=== PATIENT | male | born 1950 | race African-American/Black ===

== ENCOUNTER → 2019-11-09 10:18 | Outpatient (CLI) | payer BC, SELFPAY ==
--- NOTE | ~2019-11-09 | US_ITS ---
EXAMINATION: US thyroid DATE: 11/09/2019 10:38 INDICATION: Nontoxic multinodular goiter TECHNIQUE: Multiple ultrasound images of the thyroid were obtained. COMPARISON: None. FINDINGS: The right thyroid lobe measures 8.9 x 3.9 x 3.6 cm. The left thyroid lobe measures 6.1 x 2.3 x 2.4 c m. Again seen are multiple bilateral thyroid nodules. No significant interval change in a couple het erogeneously isoechoic solid masses with smooth margins in the right thyroid which currently measures 4.1 cm and 3.1 cm in maximal dimensions. The former is taller than wide (TI-RADS 4, moderately suspi cious , FNA if >=1.5 cm, annual followup is >1 cm) the latter 3.1 cm mass is wider than tall, (TI-RAD S 3, mildly suspicious , FNA if >=2.5 cm, annual followup is >1.5 cm). There are a few additional sma ller predominantly solid nodules in the right thyroid lobe which are centrally isoechoic, peripherall y hypoechoic, wider than tall and with smooth margins, TI-RADS 4, and which measure 10 mm, 9 mm and 6 mm in maximal dimensions. These appear to have been present at the time of the prior study but were not individually measured. In the left thyroid lobe there are a couple solid heterogeneous isoechoic nodules measuring 2.3 x 1.8 x 1.8 cm and 2.0 x 1.4 x 1.7 cm, the former wider than tall (TI-RADS 3) a nd the latter taller than wide (TI-RADS 4). On the prior study these were measured as a single larger nodule and overall there has been no significant interval change since the prior study. There is an additional 10 mm solid isoechoic TI RADS 3 nodule in the left thyroid which was not imaged on the nusrat or study. IMPRESSION: 1. Multinodular goiter with no significant interval change in size since 05/19/2018 of the 4 largest m asses which measure 4.1 cm and 3.1 cm on the right and 2.3 cm and 2.0 cm on the left. The larger nodu les were biopsied on 02/03/2015 with pathology for each read at that time as consistent with benign follicular nodule . Reviewed, dictated and finalized at location A. IMPRESSION: 1. Multinodular goiter with no significant interval change in size since 019 of the 4 largest masses which measure 4.1 cm and 3.1 cm on the right and 2. 3 cm and 2.0 cm on the left. The larger nodules were biopsied on 02/03/2015 wit h pathology for each read at that time as consistent with benign follicular no dule .
== END ==
PROVIDERS: PCP Nurse Practitioner; Visit Provider Nurse Practitioner
DX: E04.2 Nontoxic multinodular goiter (principal)
CPT/HCPCS: 76536

== ENCOUNTER → 2020-05-30 14:28 | Outpatient (CLI) | payer BC, SELFPAY ==
--- NOTE | ~2020-05-30 | XR_ITS ---
EXAMINATION: XR shoulder RT min 2V DATE: 05/30/2020 14:44 INDICATION: Right shoulder pain. TECHNIQUE: 4 views of right shoulder were obtained. COMPARISON: Chest 2 views 05/03/2011 FINDINGS: Bone alignment is normal. No fracture. There is mild osteoarthritis of glenohumeral joint a nd acromioclavicular joint characterized by tiny marginal osteophytes. There is a chronic right parat agatha mass with leftward displacement of the trachea, likely a goiter. IMPRESSION: 1. Mild polyarticular osteoarthritis. Reviewed, dictated and finalized at location A. TURNER
== END ==
PROVIDERS: PCP Internal Medicine; Visit Provider Internal Medicine
DX: M19.011 Primary osteoarthritis, right shoulder (principal)
CPT/HCPCS: 73030

== ENCOUNTER 2020-06-14 09:32 | Outpatient (CLI) | payer BC, SELFPAY ==
--- NOTE | 2020-06-19 16:04 | WPDHOLTEREM ---
Holter/Event Monitor Holter/Event Monitor Date of procedure: 06/14/20 Procedure Type: 24 hour holter monitor Indications: Tachycardia Conclusion: 1. 24 hour holter monitor on 06/14/20. 2. Underlying rhythm is sinus rhythm. HR range 56-135 bpm; average HR 84 bpm. 3. There are 415 premature supraventricular complexes and 3 supraventricular couplets. No supraventricular tachycardria. 4. There are 277 premature ventricular complexes. No ventricular tachycardia. 5. No sinoatrial or atrioventricular blocks. No significant pauses greater than 2 seconds. 6. No symptoms available for correlation.
== END 2020-06-14 09:33 | disposition home or self-care (01) ==
PROVIDERS: PCP Internal Medicine; Visit Provider Internal Medicine
DX: R00.0 Tachycardia, unspecified (principal)
CPT/HCPCS: 93225; 93226

== ENCOUNTER → 2021-09-21 11:09 | Outpatient (CLI) | payer BC, SELFPAY ==
--- NOTE | ~2021-09-21 | US_ITS ---
US scrotum doppler DATE: 09/21/2021 11:40 INDICATION: Left scrotal pain, swelling TECHNIQUE: Real-time and color flow imaging and Doppler analysis COMPARISON: None FINDINGS: Right testicle measures 3.6 x 2.5 x 3.1 cm. Left testicle measures 3.7 x 2.4 x 3 cm. There is a large irregular area of hypoechogenicity within the left testicle measures 3.2 x 1.9 x 2.8 cm, with very prominent, flow signal. Differential diagnosis includes primary testicular malignancy or lymphoma versus less likely orchitis. Urological consultation is recommended. Mild to moderate bilateral hydroceles. Left varicocele with diameter of up to 3 mm. IMPRESSION: Irregular hypoechoic heterogeneous mass with prominent vascularity involving the left yolis ticle, suspicious for primary testicular malignancy or lymphoma; differential diagnosis includes orch itis Urological consultation is recommended Reviewed, dictated and finalized at Location A. Reviewed, dictated and finalized at location A. IMPRESSION: Irregular hypoechoic heterogeneous mass with prominent vascularity involving the left testicle, suspicious for primary testicular malignancy or ly mphoma; differential diagnosis includes orchitis Urological consultation is recommended
== END ==
PROVIDERS: PCP Internal Medicine; Visit Provider Nurse Practitioner Adult Health
DX: N45.1 Epididymitis (principal); N50.89 Other specified disorders of the male genital organs
CPT/HCPCS: 76870; 93976

== ENCOUNTER → 2021-10-19 10:49 | Outpatient (CLI) | payer BC, SELFPAY ==
--- NOTE | ~2021-10-19 | US_ITS ---
US scrotum doppler INDICATION: Bilateral epididymitis TECHNIQUE: Testicular sonogram utilizing grayscale and color Doppler FINDINGS: There is an irregular shaped hypoechoic mass of the left testicle measuring 3.1 x 2 x 2.5 c m with internal vascularity. Right testicular echotexture is normal. The right testes measures 4.3 x 2.4 x 3.3 cm centimeters, and the left testis measures 3.9x 2.4 x 3 cm cm. There is normal vascular f low to both testes. The right and left epididymides appear normal. There is a small right hydrocele. IMPRESSION: 1. Poorly defined hypoechoic mass of the left testicle measuring 3.1 x 2 x 2.5 cm with internal vasc ularity. Considerations include primary testicular malignancy, lymphoma, and infection. Findings not significantly changed from prior examination allowing for differences in technique. 2: Small right hydrocele. Reviewed, dictated and finalized at location A. IMPRESSION: 1. Poorly defined hypoechoic mass of the left testicle measuring 3.1 x 2 x 2.5 cm with internal vascularity. Considerations include primary testicular malign john, lymphoma, and infection. Findings not significantly changed from prior ex amination allowing for differences in technique. 2: Small right hydrocele.
== END ==
PROVIDERS: PCP Internal Medicine; Visit Provider Urology
DX: N45.1 Epididymitis (principal); N43.3 Hydrocele, unspecified
CPT/HCPCS: 76870; 93976

== ENCOUNTER 2022-08-21 15:52 | Emergency (ER) | payer BC, SELFPAY ==
--- NOTE | 2022-08-21 16:00 | ED.SKABFB ---
HPI - Skin/Abscess/Foreign Bdy General Chief complaint: Skin/Abscess/Foreign Body Stated complaint: Both Under Arms Rash Time Seen by Provider: 08/21/22 15:59 Source: patient Mode of arrival: ambulatory Limitations: no limitations History of Present Illness HPI narrative: Nahum is a 9-year-old male patient presenting to the clinic today with complaints of a rash under her bilateral arms. He reports that the rash is painful. He said it started approximately 1 week ago when he change soaps. States that he has scrubbed the area is and they feel raw and painful. Has noticed some pus coming from the wound and has an open sore on the right axilla Related Data Home Medications Medication Instructions Recorded Confirmed tadalafil 20 mg tablet (Cialis) 20 mg PO DAILY PRN Erectile 11/05/19 08/21/22 Dysfunction cholecalciferol (vitamin D3) 125 125 mcg PO DAILY 04/25/21 08/21/22 mcg (5,000 unit) capsule Allergies Allergy/AdvReac Type Severity Reaction Status Date / Time nifedipine Allergy Intermediate Swelling Verified 08/21/22 15:58 lisinopril Allergy Mild Swelling Verified 08/21/22 15:58 Review of Systems Review of Systems: Pertinent positives per HPI. Patient denies any fever, chills, headache, visual changes, dizziness, cough, runny nose, sore throat, shortness of breath, chest pain, palpitations, nausea, vomiting, diarrhea, constipation, abdominal pain, or any urinary issues. [facility] Past Medical History Medical History Screening for colon cancer Family History Family History Father Family history of diabetes mellitus in first degree relative Family history of heart disease in male family member before age 55 Diabetes mellitus Family history of cardiovascular disease Mother Patient's mother is Father Diabetes mellitus Hypertension Family history of cardiovascular disease Mother Diabetes mellitus Hypertension Family history of cardiovascular disease Social History Social History Smoking status: Former smoker Tobacco type: cigarettes Smoking end date: 04/07/77 Alcohol intake: current Drinks per week: 4 Alcohol use details: beers Substance use: never Substance use type: does not use Lack of Transportation: No Lack of Food: Never True Current Housing: I Have Housing Concerned About Future Housing: No Difficulty Paying Gas/Electric Bills: No Difficulty Paying for Meds: No Currently Unemployed: No Education: High School Diploma/GED Difficulty w/ Childcare or Family Care: No Comments At the time of my signature, I reviewed and agree with the nursing past medical, surgical, social, and family history. There is no relevant family history pertinent to the patient complaint. Exam Narrative: General: Well-developed, well nourished, in no apparent distress Head: Normocephalic, atraumatic. Cardio: Regular rate and rhythm, s1 and s2 normal, no murmur appreciated. Resp: Clear to auscultation bilaterally, no rhonchi, rales, wheezing or rubs. Integumentary: Rendon, warm, and dry, 6 red, raised canals that are inflamed, tender to touch, with white purulent discharge expressed with palpation after incision and drainage. Largest measuring 3x2cm Course Course Emergency Course: Portions of this record may have been created with voice recognition software. Level of Care: Express Care Visit Vital Signs Vital signs: Vital signs reviewed Procedures Abscess I/D Bilateral axilla: Date of Incision: 08/21/22 Local Anesthetic: lidocaine 1% Amount of anesthesia used (mL): 2 Technique: incised with #11 blade Amount of fluid expressed (mL): 2 Irrigation: No Packing used?: none I&D Results: Pus and Blood Compl
[2022-08-21 16:08] VITALS: BP 132/82; PULSE 87; RESP 16; TEMP 37.3; O2SAT 98
== END 2022-08-21 16:50 | disposition home or self-care (01) ==
PROVIDERS: Emergency Provider Nurse Practitioner Family; PCP Internal Medicine
DX: L73.2 Hidradenitis suppurativa (principal); Z87.891 Personal history of nicotine dependence; E78.00 Pure hypercholesterolemia, unspecified; I12.9 Hypertensive chronic kidney disease with stage 1 through stage 4 chronic kidney disease, or unspecified chronic kidney disease; N18.2 Chronic kidney disease, stage 2 (mild); M19.90 Unspecified osteoarthritis, unspecified site; Z85.46 Personal history of malignant neoplasm of prostate; E55.9 Vitamin D deficiency, unspecified
CPT/HCPCS: 10061; 99213; G0463

== ENCOUNTER → 2022-12-19 15:28 | Outpatient (CLI) | payer BC, SELFPAY ==
--- NOTE | ~2022-12-19 | XR_ITS ---
XR hip RT min 2V 12/19/2022 15:46 Indication: Right hip pain Procedure: 2 views right hip Comparison: No prior studies for comparison. Findings: Moderate osteoarthritis of the right hip. No fracture or traumatic malalignment. There are radiation therapy implant seeds in the prostate bed. Impression: 1: Moderate osteoarthritis of the right hip. Reviewed, dictated and finalized at location L. Impression: 1: Moderate osteoarthritis of the right hip.
== END ==
PROVIDERS: PCP Nurse Practitioner Family; Visit Provider Nurse Practitioner Family
DX: M16.11 Unilateral primary osteoarthritis, right hip (principal)
CPT/HCPCS: 73502

== ENCOUNTER 2025-02-02 10:03 | Emergency (ER) | payer BC, SELFPAY ==
[2025-02-02 10:10] VITALS: BP 145/88; PULSE 93; RESP 18; TEMP 36.9; O2SAT 99
--- NOTE | 2025-02-02 10:35 | ED_ITS ---
HPI - URI/Sore Throat General Chief Complaint: Upper Respiratory Infection Stated Complaint: cough/runny nose Time Seen by Provider: 02/02/25 10:16 Source: patient and RN notes reviewed Mode of arrival: ambulatory Limitations: no limitations History of Present Illness HPI Narrative: Patient presents today complaining of a 2 week history of nasal congestion and sinus pressure, post nasal drip, body aches, headache, productive cough. Denies fever, sore throat, shortness of breath. He has tried mucinex, coricidin HBP without much relief. He has used his albuterol inhaler a few times as well. History of asthma. Related Data Home Medications ?Medication ?Instructions ?Recorded ?Confirmed ?Last Taken ?Type tadalafil 20 mg tablet (Cialis) 20 mg PO DAILY PRN Ere ctile 11/05/19 09/30/24 Unknown History Dysfunction cholecalciferol (vitamin D3) 125 125 mcg PO DAILY 04/0709/30/24 Unknown History mcg (5,000 unit) capsule Allergies Allergy/AdvReac Type Severity Reaction Status Date / Time nifedipine Allergy Intermediate Swelling Verified 02/02/25 10:06 lisinopril Allergy Mild Swelling Verified 02/02/25 10:06 PMF Past Medical History Medical History BMI 28.0-28.9,adult Leg fracture, right Degenerative joint disease of right hip Screening for colon cancer Surgical History Surgical History Hx of colonoscopy Family History Family History Father Family history of diabetes mellitus in first degree relative Family history of heart disease in male family member before age 55 Diabetes mellitus Family history of cardiovascular disease Mother Patient's mother is Father Diabetes mellitus Hypertension Family history of cardiovascular disease Mother Diabetes mellitus Hypertension Family history of cardiovascular disease Social History Social History Smoking status: Former smoker Tobacco type: cigarettes Second hand tobacco smoke exposure: Yes Smoking end date: 04/07/77 Alcohol intake: current Drinks per week: 4 Alcohol use details: beers Substance use: never Substance use type: does not use Do You Feel Safe in your Home?: Yes Lack of Transportation: No Lack of Food: Never True Current Housing: I Have Housing Concerned About Future Housing: No Difficulty Paying Gas/Electric Bills: No Difficulty Paying for Meds: No Currently Unemployed: No Education: High School Diploma/GED Difficulty w/ Childcare or Family Care: No Living arrangements: alone Occupation/Education: retired 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 Please see nursing chart for further information. There is no relevant family history pertinent to the presenting complaint Exam Narrative: GENERAL: Mildly ill-appearing, well-nourished, and in no acute distress. HEAD: Normocephalic, atraumatic. EYES: EOMI. No redness or drainage. Conjunctivae normal. ENT: Mucous membranes pink and moist. Nares congested with rhinorrhea. + sinus tenderness. TMs normal bilaterally. Throat normal. Uvula midline. NECK: Normal AROM. Supple. No lymphadenopathy. CHEST: No respiratory distress. Clear to auscultation. HEART: Regular rate and rhythm. No murmur appreciated. EXTREMITIES: Normal range of motion. No edema. SKIN: Warm, dry, no rash. Capillary refill normal. Normal skin turgor. NEURO: No focal deficits. Alert and oriented x3. Gait steady. PSYCH: Normal affect. No signs of depression or anxiety. Course Course Level of Care: Express Care Visit Vital Signs Vital signs: Vital Signs Temperature 98.5 F 02/02/25 10:10 Pulse Rate 93 02/02/25 10:10 Respiratory Rate 18 02/02/25 10:10 Blood Pressure 145/88 H 02/02/25 10:10 Pulse Oximetry 99 02/02/25 10:10 Oxygen Delivery Room Air 02/02/25 10:10 Temperature 98.5 F 02/02/25 10:10 Pulse Rate 93 02/02/25 10:10 Respiratory Rate 18 02/02/25 10:10 Blood Pressure 145/88 H 02/02/25 10:10 Pulse Oximetry 99 02/02/25 10:10 Oxygen Delivery Room Air 02/02/25 10:10 Reviewed MDM - URI/Sore Throat MDM Narrative Medical decision making narrative: Patient presents today complaining of a 2 week history of nasal congestion and sinus pressure, post nasal drip, body aches, headache, productive cough. Denies fever, sore throat, shortness of breath. He has tried mucinex, coricidin HBP without much relief. He has used his albuterol inhaler a few times as well. Upon exam, patient has nasal congestion with tender sinuses. Lung auscultation normal. Patient will be treated with a course of Augmentin for bacterial sinusitis and prednisone for asthma exacerbation. Recommend restarting Mucinex for chest congestion as well as Flonase for nasal congestion. Patient agrees with plan. Vital signs stable. Anticipatory guidance given. Differential Diagnosis Differential diagnosis: Likely upper respiratory infection, sinusitis, viral infection and other (Pneumonia, asthma exacerbation) Critical Care Time Critical Care Time Critical Care Time: No Discharge Plan Discharge Clinical Impression: Sinusitis Qualifiers: Sinusitis location: unspecified location Chronicity: acute Recurrence: non- recurrent Qualified Code(s): J01.90 - Acute sinusitis, unspecified Asthma exacerbation Qualifiers: Asthma severity: unspecified severity Asthma persistence: unspecified Qualified Code(s): J45.901 - Unspecified asthma with (acute) exacerbation Patient Disposition: Home Condition: Stable Instructions: Sinusitis (ED) Additional Instructions: Please take the Augmentin and prednisone as directed. Continue your albuterol inhaler as needed. Restart Mucinex for your chest congestion. Follow-up with your PCP next week if symptoms are not improving. Go to the ER immediately if symptoms worsen to include shortness of breath, fever greater than 100.3. Patient Language: Tajik Prescriptions: New prednisone 50 mg tablet 50 mg PO DAILY 5 Days Qty: 5 0RF amoxicillin-pot clavulanate 875-125 mg tablet 1 tablet PO Q12H 7 Days Qty: 14 0RF No Action albuterol sulfate [Ventolin HFA] 90 mcg/actuation HFA aerosol inhaler 2 inh INHALATION Q6H PRN (Reason: shortness of breath or wheezing) Qty: 8.5 2RF tadalafil [Cialis] 20 mg tablet 20 mg PO DAILY PRN (Reason: Erectile Dysfunction) Rx Instructions: administer approximately 30min before sexual activity; do not use more than 1 dose per 24hrs cholecalciferol (vitamin D3) 125 mcg (5,000 unit) capsule 125 mcg PO DAILY valsartan 160 mg tablet 160 mg PO BID Qty: 180 3RF hydrochlorothiazide 12.5 mg tablet 12.5 mg PO DAILY Qty: 90 3RF Rx Instructions: Take in AM atorvastatin 20 mg tablet See Rx Instructions .ROUTE .COMPLEX Qty: 90 3RF Dose Instruction: TAKE 1 TABLET BY MOUTH EVERY DAY Rx Instructions: TAKE 1 TABLET BY MOUTH EVERY DAY tamsulosin 0.4 mg capsule See Rx Instructions .ROUTE .COMPLEX Qty: 180 3RF Dose Instruction: TAKE 2 CAPSULES BY MOUTH EVERY DAY Rx Instructions: TAKE 2 CAPSULES BY MOUTH EVERY DAY Follow-up/Referrals: Edmond Fierro DO [Primary Care Provider, Internal Medicine] Time of Disposition: 10:37
== END 2025-02-02 10:45 | disposition home or self-care (01) ==
PROVIDERS: Emergency Provider Nurse Practitioner; PCP Internal Medicine
DX: J01.90 Acute sinusitis, unspecified (principal); J45.901 Unspecified asthma with (acute) exacerbation; Z87.891 Personal history of nicotine dependence; M16.11 Unilateral primary osteoarthritis, right hip
CPT/HCPCS: 99213; G0463